=== PATIENT | female | born 1985 | race Caucasian/White ===

== ENCOUNTER → 2016-10-29 | Outpatient (CLI) | payer SELFPAY | END | disposition home or self-care (01) | LOC: LAB.O 08:24 | PROVIDERS: ATTEND Family Medicine | DX: N93.8 Other specified abnormal uterine and vaginal bleeding (principal) ==

== ENCOUNTER → 2017-04-08 | Outpatient (CLI) | payer SELFPAY | END | disposition home or self-care (01) | LOC: LAB.O 09:38 | PROVIDERS: ATTEND Family Medicine | DX: N91.2 Amenorrhea, unspecified (principal) ==

== ENCOUNTER → 2017-05-28 | Outpatient (CLI) | payer SELFPAY ==
--- NOTE | 2017-05-29 23:19 | US ---
Procedure: US LESS THAN 14 WEEKS Date: 05/28/2017 Referring Provider: JOSE F SIMMONS Clinical Indication: ENCOUNTER FOR SUPERVISION OF OTHER NORMAL , 1ST TRIMESTER Comparison: None. Real-time ultrasound scanning was obtained over the gravid uterus and lead generation representative images recorded. There is a single, live intrauterine . There is a pole with crown rump length measuring 5.3 cm. The amniotic fluid volume is subjectively normal. The average estimated gestational age is 12 weeks 0 days. Estimated date of delivery is 12/10/2017. heart rate measures 158 beats per minute. There is no subchorionic fluid collection. The uterus measures 17.9 x 12.0 x 5.9 cm. The right ovary is normal in size without suspicious solid or cystic masses. The left ovary is normal in size without suspicious solid or cystic masses. There is no free fluid in the cul-de-sac. Impression: 1. Single live intrauterine with an estimated gestational age of 12 weeks 0 days and an estimated delivery date of 12/10/2017. 2. The heart rate measures 158 beats per minute. 3. No subchorionic fluid collection. 4. No suspicious adnexal masses. Electronically signed by: Dandy Grace MD 05/29/2017 11:18 PM MOLD OPERATOR
== END | disposition home or self-care (01) ==
LOC: US 09:44
PROVIDERS: ATTEND Family Medicine
DX: Z34.81 Encounter for supervision of other normal pregnancy, first trimester (principal)

== ENCOUNTER → 2017-07-18 | Outpatient (CLI) | payer SELFPAY | END | disposition home or self-care (01) | LOC: LAB.O 11:43 | PROVIDERS: ATTEND Family Medicine | DX: Z34.81 Encounter for supervision of other normal pregnancy, first trimester (principal) ==

== ENCOUNTER → 2017-08-26 | Outpatient (CLI) | payer SELFPAY | LOC: LAB.O 08-21 08:01 | PROVIDERS: ATTEND Family Medicine | DX: Z86.32 Personal history of gestational diabetes (principal) ==